=== PATIENT | male | born 1965 | race Caucasian/White ===

== ENCOUNTER 2024-10-28 18:55 | Inpatient (IN) | payer OTHER ==
[2024-10-28 20:08] VITALS: BMI 29.2
[2024-10-28] MEDS ORDERED: POLYETHYLENE GLYCOL (HEALTHYLAX) 3350 17 GM PACKET PO PRN (20:48)
[2024-10-28] MEDS ORDERED: IBUPROFEN 600 MG TABLET (FP) PO PRN (20:48)
[2024-10-28] MEDS ORDERED: BISACODYL 5 MG TABLET.DR (FP) PO PRN (20:48)
[2024-10-28] MEDS ORDERED: MAGNESIUM HYDROX 2400MG/30ML ORAL SUSPENSION 30 ML CUP PO PRN (20:48)
[2024-10-28] MEDS ORDERED: NALOXONE (NARCAN) HCL 4 MG/0.1 ML SPRAY NS PRN (20:48)
[2024-10-28] MEDS ORDERED: MAG HYDROX/AL HYDROX/SIMETH 30 ML UNIT-DOSE CUP PO PRN (20:48)
[2024-10-28] MEDS ORDERED: DOCUSATE SODIUM 100 MG CAPSULE (FP) PO PRN (20:48)
[2024-10-28] MEDS ORDERED: ACETAMINOPHEN 325 MG TABLET (FP) PO PRN (20:48)
[2024-10-28] MEDS ORDERED: NICOTINE POLACRILEX 4 MG GUM BUC PRN (20:48)
[2024-10-28] MEDS ORDERED: NALOXONE HCL 0.4 MG/ML VIAL IVPUSH PRN (20:48)
[2024-10-28] MEDS ORDERED: BENZONATATE 200 MG CAPSULE PO PRN (20:48)
[2024-10-28] MEDS ORDERED: LOPERAMIDE HCL 2 MG CAPSULE PO PRN (20:48)
[2024-10-28] MEDS ORDERED: BENZOCAINE/MENTHOL (CHLORASEPTIC ) LOZENGE MM PRN (20:48)
[2024-10-28] MEDS ORDERED: hydrOXYzine PAMOATE 25 MG CAPSULE (FP) PO PRN (20:48)
[2024-10-28] MEDS ORDERED: guaiFENesin 600 MG TABLET.ER (FP) PO PRN (20:48)
[2024-10-28] MEDS ORDERED: IBUPROFEN 400 MG TABLET (FP) PO PRN (20:48)
[2024-10-28] MEDS: levETIRAcetam 500 MG TABLET (FP) PO SCH (23:00)
[2024-10-28] MEDS: MELATONIN 5 MG TABLETS PO SCH (23:00)
[2024-10-28] MEDS: THIAMINE 100 MG TABLET PO SCH (23:15)
[2024-10-28] MEDS ORDERED: MELATONIN 5 MG TABLETS ONE (23:17)
[2024-10-28] MEDS ORDERED: levETIRAcetam 500 MG TABLET (FP) PO ONE (23:17)
[2024-10-28] MEDS: INSULIN ASPART SLIDING SCALE (NOVOLOG) 1 VIAL SQ SCH (23:22)
[2024-10-29] MEDS ORDERED: TUBERCULIN PPD 5 TU/0.1ML SYRINGE (IN PATIENT USE ONLY) ID ONE ×2 (00:50→10:00)
[2024-10-29] MEDS ORDERED: MELATONIN 5 MG TABLETS PO SCH (01:15)
[2024-10-29] MEDS: metFORMIN HCL 500 MG TABLET (FP) PO SCH ×2 (01:26→01:40)
[2024-10-29] MEDS: COLLAGENASE CLOSTRIDIUM HIST. 30 GRAMS TUBE TP SCH (01:27)
[2024-10-29] MEDS: ROSUVASTATIN CA 10 MG TABLET PO SCH (01:39)
[2024-10-29] MEDS: THIAMINE 100 MG TABLET PO SCH (01:41)
[2024-10-29] MEDS: levETIRAcetam 500 MG TABLET (FP) PO SCH (01:41)
[2024-10-29 06:57] VITALS: BP 137/81; PULSE 72; RESP 17; TEMP 97.9
[2024-10-29] MEDS: NALOXONE (NYS OPIOID OVERDOSE PROGRAM) 4 MG/0.1 ML SPRAY NS SCH (09:12)
[2024-10-29] MEDS ORDERED: LISINOPRIL 5 MG TABLET PO SCH (10:00)
[2024-10-29] MEDS ORDERED: amLODIPine BESYLATE 10 MG TABLET (FP) PO SCH (10:00)
[2024-10-29] MEDS ORDERED: ASPIRIN COATED 81 MG TABLET.EC PO SCH (10:00)
[2024-10-29] MEDS ORDERED: PRENATAL VITAMINS W/ FOLIC ACID TABLET (FP) PO SCH (10:00)
[2024-10-29] MEDS ORDERED: NICOTINE 14 MG/24 HOURS TOPICAL PATCH TD SCH (10:00)
== END 2024-10-29 09:25 | disposition left against medical advice (07) | DRG 770 ==
LOC: YASAS 18:55 → Y3E 21:34
PROVIDERS: ADMIT Allergy & Immunology; ATTEND Psychiatry & Neurology Pain Medicine
PROC: HZ42ZZZ Group Counseling for Substance Abuse Treatment, Cognitive-Behavioral (ICD-10-PCS; principal; 2024-10-28)
DX: F10.20 Alcohol dependence, uncomplicated (principal); F17.210 Nicotine dependence, cigarettes, uncomplicated; F19.24 Other psychoactive substance dependence with psychoactive substance-induced mood disorder; E78.5 Hyperlipidemia, unspecified; I10 Essential (primary) hypertension; L97.529 Non-pressure chronic ulcer of other part of left foot with unspecified severity; E11.9 Type 2 diabetes mellitus without complications; Z79.84 Long term (current) use of oral hypoglycemic drugs
CPT/HCPCS: 36415; 80305; 80307; 82962; 86803; 93005; 93010